=== PATIENT | female | born 1990 | race Caucasian/White ===

== ENCOUNTER → 2021-02-17 07:50 | Outpatient (BNVA) | payer OTHER, SELFPAY | PROVIDERS: PCP Physician Assistant; Visit Provider Surgery ==

== ENCOUNTER 2021-02-18 08:10 | Outpatient (REF) | payer OTHER, SELFPAY ==
[2021-02-18 12:01] LABS: MANUAL DIFF FLAG NO
[2021-02-18 12:12] LABS: Basophils Percent Auto 0.5 % (0-2); Eosinophils Absolute Auto 0.3 X10*3/uL (0.0-0.4); Eosinophils Percent Auto 3.5 % (0-4); Hematocrit 42.5 % (37-47); Hemoglobin 14.2 g/dl (12.0-16.0); Imm Gran Abs Auto 0.06 X10*3/uL (0.00-0.03); Imm Gran Pct Auto 0.8 % (0.0-0.4); Lymphocytes Absolute Auto 2.1 X10*3/uL (1.2-4.9); Lymphocytes Percent Auto 27.7 % (20-40); Mean Corpuscular HGB Conc 33.4 g/dl (31.0-35.0); Mean Corpuscular Hemoglobin 28.1 pg (27.0-33.0); Mean Platelet Volume 9.2 fL (9.4-12.3); Monocytes Absolute Auto 0.5 X10*3/uL (0.1-1.2); Neutrophils Absolute Auto 4.6 X10*3/uL (2.0-8.3); Neutrophils Percent Auto 61.5 % (45-73); Platelet Count 288 X10*3/uL (160-400); Red Blood Count 5.06 X10*6/uL (4.20-5.50); Red Cell Distribution Width 12.4 % (11.0-16.0); White Blood Count 7.5 X10*3/uL (4.8-10.8)
[2021-02-18 12:18] LABS: Estimated Average Glucose 105 mg/dL; Hemoglobin A1c % 5.3 %
[2021-02-18 12:46] LABS: Folate 8.1 ng/mL (> or = 4.0); Vitamin B12 360 pg/mL (200-900)
[2021-02-18 12:48] LABS: Ferritin 165 ng/mL (10-122); TSH reflex Free T4 4.35 uIU/mL (0.32-4.0); Vitamin D 25-OH Total 22.6 ng/mL (>30)
[2021-02-18 13:26] LABS: Alanine Aminotransferase 18 U/L (0-31); Albumin Level 4.4 g/dL (3.5-5.0); Alkaline Phosphatase 89 U/L (39-117); Anion Gap 14 (12-20); Aspartate Amino Transferase 17 U/L (5-31); Bilirubin Total 0.6 mg/dL (0.0-1.0); Blood Urea Nitrogen 13 mg/dL (9-16); C Reactive Protein 0.95 mg/dL (< or = 0.50); Calcium 9.5 mg/dL (8.4-10.2); Carbon Dioxide 26 mmol/L (22-29); Chloride 106 mmol/L (96-108); Cholesterol 215 mg/dL; Estimated Glomerular Filt Rate > 60; Glucose Random 83 mg/dL (60-115); HDL Cholesterol 40 mg/dL; Iron 83 mcg/dL (30-160); LDL Cholesterol Calculated 142 mg/dl; Percent Iron Saturation 23 % (15-50); Potassium 4.2 mmol/L (3.3-5.1); Sodium 142 mmol/L (135-145); Total Iron Binding Capacity 355 mcg/dL (228-428); Total Protein 7.4 g/dL (6.5-8.0); Triglycerides 167 mg/dL; Unsaturated Iron Binding 272 ug/dL
[2021-02-18 13:52] LABS: Free T4 (Free Thyroxine) 0.78 ng/dL (0.71-1.85)
[2021-02-19 17:16] LABS: Insulin Level Total 25.7 uIU/mL
[2021-02-20 13:06] LABS: Calcium (PTHI) 9.3 mg/dL (8.6-10.2); PTHI 96 pg/mL (14-64)
[2021-02-21 01:21] LABS: Zinc 75 mcg/dL (60-130)
[2021-02-22 11:41] LABS: Vitamin B1 8 nmol/L (8-30)
[2021-02-23 03:01] LABS: Vitamin A 46 mcg/dL (38-98)
== END 2021-02-18 08:11 | disposition home or self-care (01) ==
LOC: HO.LAB 08:10
PROVIDERS: Absent Provider Surgery; PCP Physician Assistant; Visit Provider Physician Assistant
DX: E66.01 Morbid (severe) obesity due to excess calories (principal); J45.909 Unspecified asthma, uncomplicated
CPT/HCPCS: 36415; 80053; 80061; 82306; 82607; 82728; 82746; 83036; 83525; 83540; 83970; 84425; 84439; 84443; 84590; 84630; 85025; 86140

== ENCOUNTER 2021-03-05 07:59 | Outpatient (REF) | payer OTHER, SELFPAY ==
[2021-03-06 13:57] LABS: H Pylori Breath Test NOT DETECTED (NOT DETECTED)
== END 2021-03-05 08:00 | disposition home or self-care (01) ==
LOC: HO.LNP 07:59
PROVIDERS: Surgery; PCP Physician Assistant; Visit Provider Physician Assistant
DX: Z11.0 Encounter for screening for intestinal infectious diseases (principal)
CPT/HCPCS: 83013; 99211

== ENCOUNTER 2021-03-06 08:28 | Outpatient (REF) | payer OTHER, SELFPAY ==
--- NOTE | ~2021-03-06 | US_ITS ---
EXAMINATION: US COMPLETE ABDOMEN WITH LIVER ELASTOGRAPHY CLINICAL INFORMATION: Obesity COMPARISON: None. TECHNIQUE: Real-time imaging of the abdominal viscera. Noninvasive ultrasound liver fibrosis assessment is performed using Venkat ElastPQ point quantification shear wave elastography (pSWE) with a C5-2 MHz transducer. Multiple elastography samples are obtained. FINDINGS: PANCREAS: The visualized pancreatic head and body are normal in appearance. The remainder of the pancreas is obscured from visualization by the overlying bowel gas. ABDOMINAL AORTA: The proximal and mid aortic segments are normal in caliber. The distal abdominal aorta is not well visualized due to bowel gas. INFERIOR VENA CAVA: Visualized portions are normal. LIVER: Liver echotexture is increased. The liver is enlarged. The liver is normal in contour. No focal lesion or intrahepatic biliary duct dilatation. The right lobe measures 19 cm in length. The left lobe measures 15 cm in length. Portal flow is normal/hepatopedal Shear wave liver elastography median stiffness is 1.65 m/s (reference: normal median stiffness is 1.3 m/s or less). IQR/median stiffness to assess sampling precision is 0.27 (reference: good quality data set is IQR/median stiffness of 0.15 or less). GALLBLADDER: There is a gallstone in the gallbladder measuring 2.1 x 1.2 x 1.8 cm. Gallbladder is otherwise normal. COMMON BILE DUCT: Normal in caliber measuring 0.5 cm in diameter. RIGHT KIDNEY: Normal. No hydronephrosis. No renal calculi or focal parenchymal lesions. The kidney measures 11.6 cm in maximum dimension. LEFT KIDNEY: Normal. No hydronephrosis. No renal calculi or focal parenchymal lesions. The kidney measures 11.0 cm in maximum dimension. SPLEEN: Normal. The spleen measures 11.5 cm in maximum dimension. FREE FLUID: None. US/US abdomen comp w elastography IMPRESSION: 1. Enlarged echogenic liver probably representing fatty infiltration. Gallstone. Limited visualization of the tail of the pancreas. 2. Liver Elastography: Limited due to sampling error. Liver stiffness is slightly elevated. REFERENCE: Society of Radiologists in Ultrasound Liver Stiffness Thresholds (2020): LIVER STIFFNESS THRESHOLDS: *Liver Stiffness equal or less than 1.3 m/s: High probability of being normal. *Liver Stiffness less than 1.7 m/s: In the absence of other known clinical signs, rules out compensated advanced chronic liver disease. *Liver Stiffness 1.7-2.1 m/s: Suggestive of compensated advanced chronic liver disease but need further test for confirmation. *Liver Stiffness over 2.1 m/s: Rules in compensated advanced chronic liver disease. *Liver Stiffness over 2.4 m/s: Suggestive of clinically significant portal hypertension. QUALITY OF DATA SET: *IQR/Median value equal or less than 0.15 implies a quality data set. *IQR/Median value over 0.15 implies a poor quality data set. SIGNIFICANT CHANGE FROM PRIOR EXAM: Significant change if liver stiffness measurement is 10% or greater from prior exam. OTHER CONSIDERATIONS: The stage of liver fibrosis may be overestimated in the setting of acute hepatitis, liver inflammation, elevated liver function tests, hepatic vascular congestion, obstructive cholestasis, non-fasting state, and infiltrative diseases such as amyloidosis and lymphoma. In some patients with NAFLD, the liver stiffness thresholds for compensated advanced chronic liver disease may be lower. In causes other than viral hepatitis and NAFLD, liver stiffness thresholds are not well established.
--- NOTE | ~2021-03-06 | XR_ITS ---
EXAMINATION: XR CHEST CLINICAL INFORMATION: Obesity COMPARISON: None TECHNIQUE: 2 views of the chest were obtained. FINDINGS: No significant abnormality is noted involving the heart, lungs, mediastinum, bony thorax or soft tissues. XR/XR chest 2V IMPRESSION: Unremarkable examination.
--- NOTE | ~2021-03-06 | FL_ITS ---
EXAMINATION: XR GI SERIES CLINICAL INFORMATION: Morbid obesity COMPARISON: None TECHNIQUE: Upper GI examination FINDINGS: There is normal elevation of the soft palate while saying candy. There is normal apposition of the vocal cords while saying E. Patient swallowed thin and thick barium without difficulty. No nasopharyngeal reflux or tracheal aspiration. No Zenker's diverticulum. The esophagus is unremarkable with normal motility and no evidence of gastroesophageal reflux. No stricture seen. The stomach demonstrates normal distensibility without abnormal mass or ulceration. There is no delay in gastric emptying. The duodenal bulb and sweep appear unremarkable. FLUOROSCOPY TIME: 1.5 minutes DOSE AREA PRODUCT: 29.200 Gy-cm2 (roldan-centimeter squared) FL/FL upper GI series IMPRESSION: Normal air contrast upper GI examination.
== END 2021-03-06 08:29 | disposition home or self-care (01) ==
LOC: HO.US 08:28
PROVIDERS: Visit Provider Surgery
DX: Z01.818 Encounter for other preprocedural examination (principal); E66.01 Morbid (severe) obesity due to excess calories; K21.9 Gastro-esophageal reflux disease without esophagitis; J45.909 Unspecified asthma, uncomplicated
CPT/HCPCS: 71046; 74240; 76705; 76981

== ENCOUNTER → 2021-03-24 07:10 | Outpatient (BNVA) | payer OTHER, SELFPAY | PROVIDERS: PCP Physician Assistant; Visit Provider Surgery ==

== ENCOUNTER → 2021-05-05 07:23 | Outpatient (BNVA) | payer OTHER, SELFPAY | PROVIDERS: PCP Physician Assistant; Visit Provider Surgery ==

== ENCOUNTER → 2021-05-15 08:06 | Outpatient (BNVA) | payer OTHER, SELFPAY | PROVIDERS: PCP Physician Assistant; Visit Provider Dietitian, Registered ==

== ENCOUNTER 2022-12-26 10:08 | Outpatient (REF) | payer OTHER, SELFPAY ==
[2022-12-26 11:45] LABS: MANUAL DIFF FLAG NO
[2022-12-26 11:55] LABS: Basophils Percent Auto 0.4 % (0-2); Eosinophils Absolute Auto 0.3 X10*3/uL (0.0-0.4); Eosinophils Percent Auto 3.9 % (0-4); Hematocrit 41.8 % (37.0-47.0); Hemoglobin 13.9 g/dl (12.0-16.0); Imm Gran Abs Auto 0.06 X10*3/uL (0.00-0.03); Imm Gran Pct Auto 0.9 % (0.0-0.4); Lymphocytes Percent Auto 29.2 % (20-40); Mean Corpuscular HGB Conc 33.3 g/dl (31.0-35.0); Mean Corpuscular Hemoglobin 27.4 pg (27.0-33.0); Mean Corpuscular Volume 82.3 fL (80.0-98.0); Monocytes Absolute Auto 0.5 X10*3/uL (0.1-1.2); Monocytes Percent Auto 7.2 % (2-11); Neutrophils Percent Auto 58.4 % (45-73); Platelet Count 272 X10*3/uL (160-400); Red Blood Count 5.08 X10*6/uL (4.20-5.50); Red Cell Distribution Width 12.6 % (11.0-16.0); White Blood Count 6.9 X10*3/uL (4.8-10.8)
[2022-12-26 12:17] LABS: Alanine Aminotransferase 21 U/L (0-31); Albumin Level 4.3 g/dL (3.5-5.0); Alkaline Phosphatase 84 U/L (39-117); Anion Gap 13 (12-20); Aspartate Amino Transferase 17 U/L (5-31); Bilirubin Total 0.6 mg/dL (0.0-1.0); Blood Urea Nitrogen 15 mg/dL (9-16); Calcium 9.3 mg/dL (8.4-10.2); Carbon Dioxide 25 mmol/L (22-29); Chloride 109 mmol/L (96-108); Cholesterol 222 mg/dL; Estimated Glomerular Filt Rate > 60; Glucose Fasting 81 mg/dL (60-99); HDL Cholesterol 41 mg/dL; LDL Cholesterol Calculated 164 mg/dl; Sodium 143 mmol/L (135-145); Triglycerides 89 mg/dL
[2022-12-26 12:41] LABS: Folate 8.8 ng/mL (> or = 4.0); Free T4 (Free Thyroxine) 0.72 ng/dL (0.71-1.85); Thyroid Stimulating Hormone 3.14 uIU/mL (0.32-4.0); Vitamin B12 357 pg/mL (200-900); Vitamin D 25-OH Total 14.7 ng/mL (>30)
[2022-12-28 13:23] LABS: Thyroid Peroxidase Antibodies 46 IU/mL (<9)
[2022-12-29 15:48] LABS: Calcium (PTHI) 9.7 mg/dL (8.6-10.2); PTHI 44 pg/mL (16-77)
== END 2022-12-26 10:09 | disposition home or self-care (01) ==
LOC: HO.HMGCLDS 10:08
PROVIDERS: PCP Internal Medicine; Visit Provider Internal Medicine
DX: E03.9 Hypothyroidism, unspecified (principal); R79.89 Other specified abnormal findings of blood chemistry; F41.1 Generalized anxiety disorder; F33.1 Major depressive disorder, recurrent, moderate; E66.01 Morbid (severe) obesity due to excess calories; E55.9 Vitamin D deficiency, unspecified; E53.8 Deficiency of other specified B group vitamins
CPT/HCPCS: 36415; 80053; 80061; 82306; 82607; 82746; 83970; 84439; 84443; 85025; 86376

== ENCOUNTER 2023-06-15 07:48 | Outpatient (AMB) | payer OTHER, SELFPAY ==
[2023-06-15 08:10] VITALS: BP 130/80; PULSE 68; O2SAT 98; BMI 53.0
--- NOTE | 2023-06-15 08:10 | A.OFFPC_ITS ---
Vital Signs 06/15/23 08:10 Height 5 ft 2 in Weight 290 lb BMI 53.0 BP 130/80 Blood Pressure Location Rt brachial Position Sitting Pulse 68 Pulse Source Pulse Oximeter Pulse Oximetry (%) 98 Oxygen Delivery Method Room Air Intake Visit Reasons: Annual Intake Note: Pt is here today for her PE Allergies sulfamethoxazole [From Bactrim] Allergy (Mild, Verified 06/15/23 08:17) rash cefaclor [From Ceclor] Allergy (Unknown, Verified 06/15/23 08:17) UNKNOWN Penicillins Allergy (Unknown, Verified 06/15/23 08:17) Unknown Medication List - Last Reconciled 06/15/23 by Meena Sanz MD buspirone 5 mg PO ONCE cholecalciferol (vitamin D3) 1,250 mcg PO QWEEK 3 months levonorgestrel (Mirena) intrauterine lisinopril 5 mg PO DAILY terbinafine HCl 1% (Antifungal (terbinafine)) 1 appl topical BID 4 weeks Ventolin HFA 90 mcg/actuation (albuterol sulfate) 2 puffs inhalation Q6H PRN NS Tobacco use date assessed: 06/15/23 Dental Screening Dental Screen Date: 06/15/23 Did you have a dental visit in the last 12 months?: Yes Did you have a dental problem in the last 6 months where you did not have access to dental care?: No Was dental information given to patient?: Patient has dentist HPI Annual HPI Details He here today for physical exam. She has hypertension currently on lisinopril 5 mg once a day . Currently on buspirone 5 mg once a day for mixed anxiety and depression. There are times however that she takes a 10 mg dose for worsening anxiety attacks. [facility], is overdue for her cervical cancer screening and for IUD surveillance. Patient wants to have IUD removed, Requesting to see a garnett machine operator helper, has thick deformed toenail in her right big toe as well as in the 5th toenail on the right foot. He has been applying a topical antifungal solution forms the last several months now which has not afforded any improvement. She made an appointment already see Dermatology, Dr. Mcclain for evaluation of a recurrent rash on both hands, where she gets a pruritic rash on the palms and fingers of both hands , worse after constant hand washing. She restarted playing soccer again, and has exercise-induced bronchospasm. Needs refill on her Ventolin inhaler. [facility] Medical History (Updated 06/15/23 @ 08:50 by Meena Sanz MD) Eczema of both hands Acquired deformity of toenail IUD surveillance Dyslipidemia Exercise induced bronchospasm Mixed anxiety and depressive disorder Essential hypertension Elevated TSH Vitamin D deficiency Vitamin B12 deficiency Morbid obesity Hypertension Surgical History History of Family History Mother Hypertension Brain aneurysm Skin cancer Thyroid disorder B-cell lymphoma Father Heart attack Bipolar 1 disorder Sister Mental health disorder Bipolar 1 disorder Sister No problems noted. Brother No problems noted. Brother No problems noted. Son No problems noted. Maternal Grandfather CAD (coronary artery disease) Acute IA, Onset Age: 60 Maternal Grandmother Alzheimer disease Social History Housing: House Alcohol intake: current Alcohol intake frequency: holidays/special occasions only Patient Tobacco Use Status: Never used Tobacco e-Cigarette/Vaping Use: Never Used Substance Use Type: Marijuana service: No Current occupational status: employed Cognitive needs: No Hearing needs: No Vision needs: No Questionnaire PHQ-9 Over the last 2 weeks, how often have you been bothered by any of the following problems? 1. Little interest or pleasure in doing things: not at all 2. Feeling down, depressed, or hopeless: several days 3. Trouble falling or staying asleep, or sleeping too much: several days 4. Feeling tired or having little energy: not at all 5. Poor appetite or overeating: not at all 6. Feeling bad about yourself - or that you are a failure or have let yourself or your family down: not at all 7. Trouble concentrating on things, such as reading the newspaper or watching television: not at all 8. Moving or speaking so slowly that other people could have noticed. Or the opposite - being so fidgety or restless that you have been moving around a lot more than usual: not at all 9. Thoughts that you would be better off or of hurting yourself in some way: not at all Total score: 2 Depression Screening Interpretation: Negative 43555 - PHQ-9 Billing: Yes Source: Developed by Drs. Quinton Mcmillan, Xenia Juárez, Roverto Vázquez and colleagues, with an educational lorena from [employer]. Thrive Questionnaire Date Thrive assessed: 12/25/22 AUDIT C Alcohol Use Questionnaire (AUDIT-C) 1. How often do you have a drink containing alcohol?: Monthly or less 2. How many drinks containing alcohol do you have on a typical day when you are drinking?: 1 or 2 3. How often do you have six or more drinks on one occasion?: Never Total Score: 1 CHELLE-7 AMB Questionnaire CHELLE-7 Date CHELLE - 7 assessed: 12/25/22 Feeling nervous, anxious, or on edge: 1 = Several days Not being able to stop or control worryin = Several days Worrying too much about different things: 2 = More than half the days Trouble relaxin = Several days Being so restless that it is hard to sit still: 0 = Not at all Becoming easily annoyed or irritable: 1 = Several days Feeling afraid as if something awful might happen: 0 = Not at all Total CHELLE-7 score (0-4 normal; 5-9 mild; 10-14 moderate; 15-21 severe): 6 Source: Developed by Drs. Quinton Mcmillan, Xenia Juárez, Roverto Vázquez and colleagues, with an educational lorena from [employer]. CHELLE-7 Assessment Billing CHELLE-7 Assessment Tool: CHELLE-7 Assessment 36776 Review of Systems Const Denies body aches, Denies fatigue, Denies headache(s) and Denies weakness Eyes Denies change in vision ENT Denies dizziness, Denies headache(s) and Denies nasal congestion Card Denies chest pain, Denies lightheadedness, Denies palpitations and Denies dys pnea Resp Denies chest congestion, Denies cough and Denies dyspnea GI Denies abdominal pain, Denies hematochezia, Reports constipation (Occasion), Rep orts GI cramping and Denies heartburn Denies hematuria, Denies urinary frequency, Denies dysuria and Denies urinary urgency Musc Details: Occasional pain, stiffness in both knees Skin/Breast Denies breast pain, Denies breast mass and Denies lesions Neuro Denies dizziness, Denies headache(s) and Denies weakness Psych Reports as per HPI Endo Denies fatigue, Denies polydipsia, Denies polyuria and Denies palpitations Alfredo/Lymph Reports no additional complaints Aller/Immun Denies seasonal rhinorrhea Physical exam (Primary Care) Vital Signs: Last Vital Signs Pulse 68 06/15/23 08:10 BP 130/80 06/15/23 08:10 Pulse Ox 98 06/15/23 08:10 Oxygen Delivery Method Room Air 06/15/23 08:10 BMI result Body Mass Index 53.0 BMI Assessment/Plan discussion: High (Has been seen at the weight loss clinic in [place] but decided against getting any bariatric surgery) BMI High, discussed plan: lifestyle, weight reduction, dietary and physical activity Tobacco/Smoking Status: Tobacco use Status Tobacco use date assessed 06/15/23 06/15/23 08:14 Patient Tobacco Use Status Never used Tobacco 06/15/23 08:14 e-Cigarette/Vaping Use Never Used 06/15/23 08:14 Depression Screening Interpretation: Negative Thrive Assessment: Date of Thrive Assessment Date Thrive assessed 12/25/22 06/15/23 08:14 Const General: comfortable, alert, awake and Physically active Nutritional Appearance: obese morbidly obese Orientation/consciousness: patient oriented x3 HENMT Head: Yes normocephalic Ears: hearing grossly normal bilaterally, external ears normal, TM's normal bilaterally and Abnormal EAC present cerumen impaction on the left General nose exam: Normal external nose present and No nasal discharge present Face and sinus: Yes face symmetric Mouth: Normal oral and palatal mucosa present, oropharynx normal and moist mucous membranes Eyes General: appearance normal, both eyes and all related structures Neck Neck: Yes full ROM, Yes no lymphadenopathy and Yes supple Thyroid: Thyroid normal Chest Chest palpation & inspection: normal inspection of the chest Breast/axilla palpation: normal palpation of the breasts Resp Effort & Inspection: normal respiratory effort and able to speak in complete sentences Auscultation: clear to auscultation bilaterally Cardio Palpation: normal PMI Rate: regular rate Rhythm: regular rhythm Heart sounds: S1 normal heart sound present and S2 normal heart sound present GI Inspection: Yes obesity Palpation (GI): Soft to palpation, nontender and no guarding Auscultation: normal bowel sounds General: Yes no CVA tenderness Back/Spine/Pelvis Back: no CVA tenderness and No back tenderness Skin Other: Erythematous patch on palms of both hands right more than the left Nails: yellow and thickened (Right big toenail and right 5th toenail) Neuro General: patient oriented x3, gait normal, moves all extremities, Normal light touch and pain sensation and no focal motor deficits Cranial nerves: Yes CN's II-XII intact bilaterally Gait exam (Neuro): Normal gait present Extrem General: Yes full ROM, Yes no joint enlargement, Yes no clubbing, cyanosis or edema, Yes no calf tenderness and Yes normal gait Psych Appearance: grossly normal and well kempt Mental Status: mental status grossly normal Speech and movement: Normal speech and movement present Affect: normal affect Attitude: cooperative Thought process: Normal thought process present Assessment and Plan Assessment & Plan (1) Annual visit for general adult medical examination with abnormal findings: Code(s): Z00.01 - Encounter for general adult medical examination with abnormal findings Plan: Will check appropriate labs. Recommended dental visit every 6 months and regular eye exams, at least every 2 years. Take adequate calcium in diet and start taking vitamin-D 3 at 2000 IU per cap once a day once finished taking the high-dose vitamin-D 3 supplements, in addition to weight-bearing exercises to help maintain good muscle tone and weight control. Instructed to do self-breast exam, and recommended to get yearly mammogram, starting at age 40. Advised to get her yearly flu shot and her COVID booster, up-to-date with her tetanus booster (2) Essential hypertension: Code(s): I10 - Essential (primary) hypertension Plan: Blood pressure at goal of less than 130/80. Continue with lisinopril 5 mg once a day. Reinforced importance of following a low sodium diet, getting regular exercise, and lowering stress levels. (3) Vitamin D deficiency: Code(s): E55.9 - Vitamin D deficiency, unspecified Plan: Will check vitamin-D level, prescription sent for vitamin-D 3 2000 units once a day to be taken when she is finished taking her high-dose prescription for vitamin-D 3 (4) Morbid obesity: Code(s): E66.01 - Morbid (severe) obesity due to excess calories Plan: Discussed need to increase activity and wt reduction. Referral to scale tank operator ordered. Recommended focusing on improving your health instead of dieting. : Eat Mediterranean diet, limit foods high in fat, sugar, and calories, eat slowly, pay attention to portion sizes, plan your meals ahead of time, start regular physical activity 150 minutes of moderate intensity exercise or 90 minutes/week of vigorous exercise and increase water intake. (5) Cervical cancer screening: Code(s): Z12.4 - Encounter for screening for malignant neoplasm of cervix Plan: Referred to [facility] for her cervical cancer screening, overdue (6) Acquired deformity of toenail: Comment: right big toenail and right 5th toenail Code(s): L60.8 - Other nail disorders Plan: Podiatry consult obtained with Dr. Segovia (7) Exercise induced bronchospasm: Code(s): J45.990 - Exercise induced bronchospasm Plan: Has started to play soccer, gets intermittent episodes of wheezing after moderate to severe exertion. Refill prescription sent for her Ventolin inhaler (8) Mixed anxiety and depressive disorder: Code(s): F41.8 - Other specified anxiety disorders Plan: Increased buspirone dose to 10 mg, taken either 5 mg twice a day or she can take a 10 mg dose in the morning, which she has been tried in the past, and has been helping her. Declines referral for counseling (9) IUD surveillance: Code(s): Z30.431 - Encounter for routine checking of intrauterine contraceptive device Plan: Referred to [facility] for IUD surveillance and for her cervical cancer screening[facility]. She is contemplating of getting IUD removed (10) Dyslipidemia: Code(s): E78.5 - Hyperlipidemia, unspecified Plan: Fasting lipid panel ordered , referred to scale tank operator for guidance with regards to lowering cholesterol and help losing weight (11) Impacted cerumen, left ear: Code(s): H61.22 - Impacted cerumen, left ear Plan: Advised to try [id number] Debrox drops or Cerumenex for earwax removal (12) Eczema of both hands: Code(s): L30.9 - Dermatitis, unspecified Plan: Patient already made an appointment to see Dr. Mcclain. Advised to try also was tries enhance using Eucerin eczema cream after each hand washing Orders: Orders Lipid Panel 06/15/23 E55.9 - Vitamin D deficiency, unspecified, E66.01 - Morbid (severe) obesity due to excess calories, E78.5 - Hyperlipidemia, unspecified, I10 - Essential (primary) hypertension Vitamin D 25-OH Total 06/15/23 E55.9 - Vitamin D deficiency, unspecified, E66.01 - Morbid (severe) obesity due to excess calories, E78.5 - Hyperlipidemia, unspecified, I10 - Essential (primary) hypertension Basic Metabolic Panel Fasting 06/15/23 E55.9 - Vitamin D deficiency, unspecified, E66.01 - Morbid (severe) obesity due to excess calories, E78.5 - Hyperlipidemia, unspecified, I10 - Essential (primary) hypertension Referrals [facility] Referral Z12.4 - Encounter for screening for malignant neoplasm of cervix, Z30.431 - Encounter for routine checking of intrauterine contraceptive device Podiatry Referral L60.8 - Other nail disorders Medications: New cholecalciferol (vitamin D3) 50 mcg PO DAILY 90 caps 1RF Changed From buspirone 5 mg PO ONCE F41.8 - Other specified anxiety disorders To buspirone 5 mg PO BID 60 tabs 3RF F41.8 - Other specified anxiety disorders Refilled Ventolin HFA 90 mcg/actuation (albuterol sulfate) Take 2 inhalation 15 units before exercise to treat exercise induced bronchospasm 2 puffs inhalation Q6H PRN 18 grams 5RF shortness of breath or wheezing NS lisinopril 5 mg PO DAILY 90 tabs 3RF I10 - Essential (primary) hypertension Coding Level of Care Code Est Pt Prev Care [id number]([id number]) Diagnoses Annual visit for general adult medical examination with abnormal findings Z00.01 Essential hypertension I10 Vitamin D deficiency E55.9 Morbid obesity E66.01 Cervical cancer screening Z12.4 Acquired deformity of toenail L60.8 Exercise induced bronchospasm J45.990 Mixed anxiety and depressive disorder F41.8 IUD surveillance Z30.431 Dyslipidemia E78.5 Impacted cerumen, left ear H61.22 Eczema of both hands L30.9 Additional Codes CHELLE-7 Assessment Billing - CHELLE-7 Assessment Tool: CHELLE-7 Assessment [id number] ([id number])
== END 2023-06-15 09:13 | disposition home or self-care (01) ==
PROVIDERS: Visit Provider Internal Medicine
DX: Z00.01 Encounter for general adult medical examination with abnormal findings (principal); I10 Essential (primary) hypertension; E55.9 Vitamin D deficiency, unspecified; E66.01 Morbid (severe) obesity due to excess calories; Z12.4 Encounter for screening for malignant neoplasm of cervix; L60.8 Other nail disorders; J45.990 Exercise induced bronchospasm; F41.8 Other specified anxiety disorders; Z30.431 Encounter for routine checking of intrauterine contraceptive device; E78.5 Hyperlipidemia, unspecified; H61.22 Impacted cerumen, left ear; L30.9 Dermatitis, unspecified
CPT/HCPCS: 99395

== ENCOUNTER 2023-08-24 08:06 | Outpatient (AMB) | payer OTHER, SELFPAY ==
[2023-08-24 08:20] VITALS: BP 116/70; BMI 52.8
--- NOTE | 2023-08-24 08:20 | MHC.OFFVIS ---
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 No complaints. The patient had a Mirena IUD inserted 5 years ago, in 11/2017, would like to discuss different options of Ca Last Pap/HPV was 5 years ago, no records available [facility] Medical History Eczema of both hands Acquired deformity of toenail IUD surveillance Dyslipidemia Exercise induced bronchospasm Mixed anxiety and depressive disorder Essential hypertension Elevated TSH Vitamin D deficiency Vitamin B12 deficiency Morbid obesity Hypertension Surgical History History of Family History Mother Hypertension Brain aneurysm Skin cancer Thyroid disorder B-cell lymphoma Father Heart attack Bipolar 1 disorder Sister Mental health disorder Bipolar 1 disorder Sister No problems noted. Brother No problems noted. Brother No problems noted. Son No problems noted. Maternal Grandfather CAD (coronary artery disease) Acute [place], Onset Age: 60 Maternal Grandmother Alzheimer disease Social History Housing: House Alcohol intake: current Alcohol intake frequency: holidays/special occasions only Patient Tobacco Use Status: Never used Tobacco e-Cigarette/Vaping Use: Never Used Substance Use Type: Marijuana service: No Current occupational status: employed Cognitive needs: No Hearing needs: No Vision needs: No Review of Systems Const All systems reviewed & are unremarkable except as noted in HPI and below Card Reports as per HPI Resp Reports as per HPI GI Reports as per HPI and Reports no additional complaints Reports as per HPI Physical Exam Vital Signs: BMI result Body Mass Index 52.8 Const General: cooperative, healthy appearing and comfortable Chest Chest palpation & inspection: normal inspection of the chest and normal palpation of entire chest wall Breast/axilla inspection: normal inspection of the breasts and normal inspection of the axillae Breast/axilla palpation: normal palpation of the breasts, normal palpation of the axillae and no axillary lymphadenopathy Resp Effort & Inspection: normal respiratory effort Auscultation: clear to auscultation bilaterally Percussion: percussion normal Cardio Palpation: normal PMI Rate: regular rate Rhythm: regular rhythm Heart sounds: no murmurs and no rubs Peripheral pulses: Peripheral pulses 2+ throughout GI Inspection: Yes normal to inspection Palpation (GI): Soft to palpation, nontender, no guarding, not rigid and No hepatosplenomegaly present Percussion: Yes normal to percussion Auscultation: normal bowel sounds Rectal Exam - Female: deferred General: Yes bladder normal to palpation External Female Exam: No lesion Speculum Exam - Vagina: normal appearance of the vagina, normal palpation, normal vaginal discharge and not erythematous Speculum Exam - Cervix: normal appearance of the cervix, normal palpation and Other cervical findings present (IUD string in place) Bimanual exam- vagina & uterus: normal bimanual exam, normal palpation, uterine size normal, bladder normal to palpation, consistency normal and normal palpation Bimanual Exam- Adnexa, other: normal adnexae, no masses and no tenderness Assessment & Plan Assessment & Plan (1) Well woman exam: Code(s): Z01.419 - Encounter for gynecological examination (general) (routine) without abnormal findings Plan: Cotesting done. Counseled the patient about the recommended dietary allowance of 1000 mg of Calcium & 600 IU of vitamin D. The patient was instructed to perform monthly self-breast exams and to schedule an annual exam in a year; All questions answered and the patient verbalized understanding. Instructed the patient to schedule annual exam in a year (2) IUD check up: Code(s): Z30.431 - Encounter for routine checking of intrauterine contraceptive device Plan: Discussed with the patient the finding on physical exam, IUD string in place, the patient was reassured. Instructions given to patient to call in case of temperature above 100.4, severe cramping/pelvic pain, abnormal discharge or abnormal uterine bleeding. Otherwise follow-up at her annual exam appointment. All questions answered, the patient verbalized understanding. (3) Family planning advice: Code(s): Z30.09 - Encounter for other general counseling and advice on contraception Plan: Discussed with the patient the different options of control including control pills/Nuvaring, DMPA, different types of IUD ?s ( cu vs progesterone) , sterilization. All the pros, cons, risks and benefits of each were discussed with the patient. The patient decided to stay with Mirena IUD, discussed the patient the duration for IUDs up to 8 years, the patient would like to think about different options and get back to us Coding Level of Care Code New Pt Prev Care 18-39yr([id number] Diagnoses Well woman exam Z01.419 IUD check up Z30.431 Family planning advice Z30.09
== END 2023-08-24 10:27 | disposition home or self-care (01) ==
PROVIDERS: PCP Internal Medicine; Visit Provider Obstetrics & Gynecology
DX: Z01.419 Encounter for gynecological examination (general) (routine) without abnormal findings (principal); Z30.431 Encounter for routine checking of intrauterine contraceptive device; Z30.09 Encounter for other general counseling and advice on contraception
CPT/HCPCS: 99385

== ENCOUNTER 2023-08-24 08:06 | Outpatient (REF) | payer OTHER, SELFPAY ==
[2023-08-25 05:40] LABS: CT PCR NOT DETECTED (Not Detect.); NG PCR NOT DETECTED (Not Detect.)
[2023-08-25 12:22] LABS: BV Int Neg Control Negative (Negative); BV Int Pos Control Positive (Positive)
[2023-08-27 02:04] LABS: HPV mRNA E6/E7 rflx Not Detected (Not Detected)
== END 2023-08-24 08:07 | disposition home or self-care (01) ==
LOC: HO.LNP 08:06
PROVIDERS: PCP Internal Medicine; Visit Provider Obstetrics & Gynecology
DX: Z01.419 Encounter for gynecological examination (general) (routine) without abnormal findings (principal)
CPT/HCPCS: 0353U; 87480; 87510; 87624; 87660; 88142; 99385

== ENCOUNTER 2024-07-03 08:01 | Outpatient (AMB) | payer OTHER, SELFPAY ==
[2024-07-03 08:03] VITALS: BP 102/80; PULSE 67; O2SAT 97; BMI 51.9
--- NOTE | 2024-07-03 08:03 | A.OFFPC_ITS ---
Vital Signs 07/03/24 08:03 Height 5 ft 2 in Weight 284 lb BMI 51.9 BP 102/80 Blood Pressure Location Rt brachial Position Sitting Pulse 67 Pulse Source Pulse Oximeter Pulse Oximetry (%) 97 Oxygen Delivery Method Room Air Intake Visit Reasons: Annual PE Intake Note: Pt is here today for her PE: Last papsmear 08/25/23 Allergies sulfamethoxazole [From Bactrim] Allergy (Mild, Verified 07/03/24 08:19) rash cefaclor [From Ceclor] Allergy (Unknown, Verified 07/03/24 08:19) UNKNOWN Penicillins Allergy (Unknown, Verified 07/03/24 08:19) Unknown fish Allergy (Intermediate, Uncoded 07/03/24 08:43) Hives Food allergy Allergy (Intermediate, Uncoded 07/03/24 08:43) Hives Medication List - Last Reconciled 07/03/24 by Meena Sanz MD buspirone 7.5 mg PO ONCE cholecalciferol (vitamin D3) 50 mcg PO DAILY levonorgestrel (Mirena) intrauterine lisinopril 5 mg PO DAILY Ventolin HFA 90 mcg/actuation (albuterol sulfate) 2 puffs inhalation Q6H PRN NS Tobacco use date assessed: 07/03/24 Dental Screening Dental Screen Date: 07/03/24 Did you have a dental visit in the last 12 months?: Yes Did you have a dental problem in the last 6 months where you did not have access to dental care?: No Was dental information given to patient?: Patient has dentist HPI Annual PE HPI Details 34-year-old lady with morbid obesity, ex ercise-induced bronchospasm, dyslipidemia, anxiety with depression, and hypertension, here today for a physical exam. She is up-to-date with her cervical cancer screening, with last Pap smear done 08/25/2023 which came back with negative findings. Takes Ventolin inhaler as needed for exercise-induced bronchospasm, needs a refill. Blood pressure stable controlled on lisinopril 5 mg taken once a day . Takes buspirone 7.5 mg once a day on ly which helps with controlling her anxiety and depression. Gets severe hives from eating fish, carrots, and peaches. Would like a referral to an clinical rehab specialist [facility] Medical History (Updated 07/03/24 @ 08:40 by Meena Sanz MD) Food allergic skin reaction Fish allergy Acquired deformity of toenail IUD surveillance Dyslipidemia Exercise induced bronchospasm Mixed anxiety and depressive disorder Essential hypertension Elevated TSH Vitamin D deficiency Vitamin B12 deficiency Morbid obesity Hypertension Surgical History History of Family History Mother Hypertension Brain aneurysm Skin cancer Thyroid disorder B-cell lymphoma Father Heart attack Bipolar 1 disorder Sister Mental health disorder Bipolar 1 disorder Sister No problems noted. Brother No problems noted. Brother No problems noted. Son No problems noted. Maternal Grandfather CAD (coronary artery disease) Acute [place], Onset Age: 60 Maternal Grandmother Alzheimer disease Social History Housing: House Alcohol intake: current Alcohol intake frequency: holidays/special occasions only Patient Tobacco Use Status: Never used Tobacco e-Cigarette/Vaping Use: Never Used Substance Use Type: Marijuana service: No Current occupational status: employed Cognitive needs: No Hearing needs: No Vision needs: No Female Reproductive History Menstrual control method: progestin IUCD Date of last pap smear: 08/25/23 Other: [place] [facility] [place] [facility] Dr. Torres Questionnaire PHQ-9 Over the last 2 weeks, how often have you been bothered by any of the following problems? 1. Little interest or pleasure in doing things: not at all 2. Feeling down, depressed, or hopeless: not at all 3. Trouble falling or staying asleep, or sleeping too much: several days 4. Feeling tired or having little energy: several days 5. Poor appetite or overeating: more than half the days 6. Feeling bad about yourself - or that you are a failure or have let yourself or your family down: not at all 7. Trouble concentrating on things, such as reading the newspaper or watching television: not at all 8. Moving or speaking so slowly that other people could have noticed. Or the opposite - being so fidgety or restless that you have been moving around a lot more than usual: more than half the days 9. Thoughts that you would be better off or of hurting yourself in some way: not at all Total score: 6 Depression Screening Interpretation: Negative Depression Screening Done: Yes 84611 - PHQ-9 Billing: Yes Source: Developed by Drs. Quinton Mcmillan, Xenai Juárez, Roverto Vázquez and colleagues, with an educational lorena from [employer]. Thrive Questionnaire Date Thrive assessed: 07/03/24 I am a: Patient What is your living situation today?: I have a steady place to live Within the past 12 months, did the food you bought not last and you didn't have the money to get more?: Never true Within the past 12 months, did you worry whether your food would run out before you got money to buy more?: Never true Do you have trouble paying for medicines?: No Do you have trouble getting transportation to medical appointments?: No Do you have trouble paying your heating and electricity bill?: No Do you have trouble taking care of your child, family member or friend?: No Do you have trouble with day-to-day activities such as bathing, preparing meals, shopping, managing finances, etc.?: No Are you currently unemployed and looking for a job?: No Are you interested in more education?: No Please select the resources that you would like help with: None Currently or been in a relationship where the following occur: No concerns r eported THRIVE Score: 0 AUDIT C Alcohol Use Questionnaire (AUDIT-C) 2. How many drinks containing alcohol do you have on a typical day when you are drinking?: 1 or 2 Total Score: 0 CHELLE-7 AMB Questionnaire CHELLE-7 Date CHELLE - 7 assessed: 07/03/24 Feeling nervous, anxious, or on edge: 1 = Several days Not being able to stop or control worryin = Not at all Worrying too much about different things: 1 = Several days Trouble relaxin = Not at all Being so restless that it is hard to sit still: 0 = Not at all Becoming easily annoyed or irritable: 1 = Several days Feeling afraid as if something awful might happen: 0 = Not at all Total CHELLE-7 score (0-4 normal; 5-9 mild; 10-14 moderate; 15-21 severe): 3 Source: Developed by Xenia Brown Franck, Roverto Vázquez and colleagues, with an educational lorena from [employer]. CHELLE-7 Assessment Billing CHELLE-7 Assessment Tool: CHELLE-7 Assessment 82046 Review of Systems Const Denies body aches, Denies headache(s) and Denies weakness Eyes Denies change in vision ENT Denies dizziness, Denies headache(s) and Denies nasal congestion Card Denies chest pain, Denies lightheadedness, Denies palpitations and Denies dyspnea Resp Details: Gets wheezing, gets short of breath on moderate exertion, uses Ventolin inhaler prior to exercise which helps Denies chest congestion, Denies cough and Denies dyspnea GI Denies abdominal pain, Denies hematochezia and Denies heartburn Denies hematuria, Denies urinary frequency, Denies dysuria and Denies urinary urgency Musc Details: Occasional pain, stiffness in both knees Skin/Breast Denies breast pain, Denies breast mass and Denies lesions Neuro Denies dizziness, Denies headache(s) and Denies weakness Psych Reports as per HPI Endo Denies polydipsia, Denies polyuria and Denies palpitations Alfredo/Lymph Reports no additional complaints Aller/Immun Reports as per HPI and Denies seasonal rhinorrhea Physical exam (Primary Care) Vital Signs: Last Vital Signs Pulse 67 07/03/24 08:03 BP 102/80 07/03/24 08:03 Pulse Ox 97 07/03/24 08:03 Oxygen Delivery Method Room Air 07/03/24 08:03 BMI result Body Mass Index 51.9 BMI Assessment/Plan discussion: High (Has been seen at the weight loss clinic in [place] but decided against getting any bariatric surgery) BMI High, discussed plan: lifestyle, weight reduction, dietary and physical activity Tobacco/Smoking Status: Tobacco use Status Tobacco use date assessed 07/03/24 07/03/24 08:09 Patient Tobacco Use Status Never used Tobacco 07/03/24 08:04 e-Cigarette/Vaping Use Never Used 07/03/24 08:04 Depression Screening Interpretation: Negative Thrive Assessment: Date of Thrive Assessment Date Thrive assessed 07/03/24 07/03/24 08:09 Currently or been in a relationship where the following occur: No concerns reported Const General: comfortable, alert, awake and Physically active Nutritional Appearance: obese morbidly obese Orientation/consciousness: patient oriented x3 HENMT Head: Yes normocephalic Ears: hearing grossly normal bilaterally, external ears normal, TM's normal bilaterally and Abnormal EAC present cerumen impaction on the left General nose exam: Normal external nose present and No nasal discharge present Face and sinus: Yes face symmetric Mouth: Normal oral and palatal mucosa present, oropharynx normal and moist mucous membranes Eyes General: appearance normal, both eyes and all related structures Neck Neck: Yes full ROM, Yes no lymphadenopathy and Yes supple Thyroid: Thyroid normal Chest Chest palpation & inspection: normal inspection of the chest Breast/axilla palpation: normal palpation of the breasts Resp Effort & Inspection: normal respiratory effort and able to speak in complete sentences Auscultation: clear to auscultation bilaterally Cardio Palpation: normal PMI Rate: regular rate Rhythm: regular rhythm Heart sounds: S1 normal heart sound present and S2 normal heart sound present GI Inspection: Yes obesity Palpation (GI): Soft to palpation, nontender and no guarding Auscultation: normal bowel sounds General: Yes no CVA tenderness Back/Spine/Pelvis Back: no CVA tenderness and No back tenderness Skin General skin exam: no rashes or lesions noted Neuro General: patient oriented x3, gait normal, moves all extremities, Normal light touch and pain sensation and no focal motor deficits Cranial nerves: Yes CN's II-XII intact bilaterally Gait exam (Neuro): Normal gait present Extrem General: Yes full ROM, Yes no joint enlargement, Yes no clubbing, cyanosis or edema, Yes no calf tenderness and Yes normal gait Psych Appearance: grossly normal and well kempt Mental Status: mental status grossly normal Speech and movement: Normal speech and movement present Affect: normal affect Attitude: cooperative Thought process: Normal thought process present Office Procedures Flu Questionnaire Does the patient have a severe egg allergy?: No Does the patient have severe life threatening allergies?: No Does the patient have a fever or illness today?: No Has the patient ever had Guillain-Noel Syndrome?: No Has the patient ever had any past reaction to a flu shot?: No Immunizations Fluarix Triv [id number] (PF) 45 mcg (15 mcg x 3)/0.5 mL IM syringe Performing Provider: Meena Sanz MD [place] [facility] [place] [place] [facility] Administered by: Yulia Lee CMA on 07/03/24 08:38 Dose Route Admin Location Dispensed Lot Number Expiration Date NDC Commodity Lead 0.5 mL IM Right Deltoid 0.5 mL [id number] 03/12/25 [id number] [employer] VIS Given Date VIS Provided VIS Publication Date 07/03/24 Single Vaccine 21 Eligibility Eligibility Date Funding Source Not VFC Eligible 07/03/24 Private Coding Level of Care Code Est Pt Prev Care 18-39y(17450) Diagnoses Morbid obesity E66.01 Vitamin D deficiency E55.9 Essential hypertension I10 Mixed anxiety and depressive disorder F41.8 Exercise induced bronchospasm J45.990 Dyslipidemia E78.5 Encounter for counseling regarding advance directives Z71.89 Annual visit for general adult medical examination with abnormal findings Z00.01 Fish allergy Z91.013 Food allergic skin reaction L27.2 Additional Codes CHELLE-7 Assessment Billing - CHELLE-7 Assessment Tool: CHELLE-7 Assessment 11437 ([id number]) Assessment & Plan Assessment & Plan (1) Morbid obesity: Code(s): E66.01 - Morbid (severe) obesity due to excess calories Category: Medical Plan: Your BMI is above the ideal range. Discussed need to increase activity and weight reduction. Recommended focusing on improving health instead of dieting. Mediterranean diet is a healthy diet that helps, limit food high in fat, sugar, and calories. Eat slowly, pay attention to portion sizes, plan your meals ahead of time, start regular physical activity, at least 150 minutes of moderate intensity exercise, or 90 minutes per week of vigorous exercise. Keeping a food diary, tracking what you eat and your physical activity can help assess what improvements you can make. Has been seen at the weight loss clinic in [place] but decided against getting any bariatric surgery (2) Vitamin D deficiency: Code(s): E55.9 - Vitamin D deficiency, unspecified Category: Medical Plan: Will check vitamin-D level, in the meantime can start taking [id number] vitamin D3 at 2000 units daily (3) Essential hypertension: Code(s): I10 - Essential (primary) hypertension Category: Medical Plan: Blood pressure at goal of less than 130/80. Continue lisinopril 5 mg daily Reinforced importance of following a low sodium diet, getting regular exercise, and lowering stress levels. (4) Mixed anxiety and depressive disorder: Code(s): F41.8 - Other specified anxiety disorders Category: Medical Plan: Stable and controlled on buspirone 7.5 mg taken once a day in a.m. (5) Exercise induced bronchospasm: Code(s): J45.990 - Exercise induced bronchospasm Category: Medical Plan: Refill sent for her Ventolin inhaler which she uses at least 15 minutes before exercise (6) Dyslipidemia: Code(s): E78.5 - Hyperlipidemia, unspecified Category: Medical Plan: Fasting lipid panel ordered today. Reinforced importance of following a low-cholesterol diet and getting regular exercise at least 30 minutes of cardio exercise daily (7) Encounter for counseling regarding advance directives: Code(s): Z71.89 - Other specified counseling Plan: Initiated the conversation about Advanced Directives. Advanced Directives help patients prepare for current and future decisions about their medical treatment and place of care. Discussed with patient that it is a process where a patients current condition and prognosis are reviewed, their wishes for information regarding their illness are elicited, and likely medical dilemmas are presented and options discussed. Healthcare proxy form completed today. The form can be amended as needed, reviewed yearly and make changes as needed (8) Annual visit for general adult medical examination with abnormal findings: Code(s): Z00.01 - Encounter for general adult medical examination with abnormal findings Plan: Will check appropriate labs. Continue red dental visit every 6 months and regular eye exams, at least every 2 years. Take adequate calcium in diet and vitamin-D 3 at 2000 IU per cap once a day, in addition to weight-bearing exercises to help maintain good muscle tone and weight control. Instructed to do self-breast exam, and recommended to get yearly mammogram, starting at age 40. Flu vaccine given today, recommended to get her COVID booster sees Dr. Torres for her routine Pap and pelvic exam (9) Fish allergy: Code(s): Z91.013 - Allergy to seafood Category: Medical Plan: Allergy consult ordered (10) Food allergic skin reaction: Code(s): L27.2 - Dermatitis due to ingested food Category: Medical Plan: Allergy consult ordered Orders: Orders Influenza [id number] Immunization Today Z23 - Encounter for immunization Basic Metabolic Panel Fasting Today E55.9 - Vitamin D deficiency, unspecified, E66.01 - Morbid (severe) obesity due to excess calories, E78.5 - Hyperlipidemia, unspecified, I10 - Essential (primary) hypertension, Z00.01 - Encounter for general adult medical examination with abnormal findings Alanine Aminotransferase Today E55.9 - Vitamin D deficiency, unspecified, E66.01 - Morbid (severe) obesity due to excess calories, E78.5 - Hyperlipidemia, unspecified, I10 - Essential (primary) hypertension, Z00.01 - Encounter for general adult medical examination with abnormal findings, Z71.89 - Other specified counseling Aspartate Amino Transferase Today E55.9 - Vitamin D deficiency, unspecified, E66.01 - Morbid (severe) obesity due to excess calories, E78.5 - Hyperlipidemia, unspecified, I10 - Essential (primary) hypertension, Z00.01 - Encounter for general adult medical examination with abnormal findings, Z71.89 - Other specified counseling Vitamin D 25-OH Total Today E55.9 - Vitamin D deficiency, unspecified, E66.01 - Morbid (severe) obesity due to excess calories, E78.5 - Hyperlipidemia, unspecified, I10 - Essential (primary) hypertension, Z00.01 - Encounter for general adult medical examination with abnormal findings, Z71.89 - Other specified counseling Lipid Panel Today E55.9 - Vitamin D deficiency, unspecified, E66.01 - Morbid (severe) obesity due to excess calories, E78.5 - Hyperlipidemia, unspecified, I10 - Essential (primary) hypertension, Z00.01 - Encounter for general adult medical examination with abnormal findings, Z71.89 - Other specified counseling Referrals Allergy & Immunology Referral L27.2 - Dermatitis due to ingested food, Z91.013 - Allergy to seafood Medications: Refilled Ventolin HFA 90 mcg/actuation (albuterol sulfate) Take 2 inhalation 15 units before exercise to treat exercise induced bronchospasm 2 puffs inhalation Q6H PRN 18 grams 5RF shortness of breath or wheezing NS
== END 2024-07-03 09:25 | disposition home or self-care (01) ==
PROVIDERS: PCP Internal Medicine; Visit Provider Internal Medicine
DX: Z00.00 Encounter for general adult medical examination without abnormal findings (principal); E66.813 Obesity, class 3; E55.9 Vitamin D deficiency, unspecified; Z68.43 Body mass index [BMI] 50.0-59.9, adult; I10 Essential (primary) hypertension; F41.8 Other specified anxiety disorders; J45.990 Exercise induced bronchospasm; E78.5 Hyperlipidemia, unspecified; Z71.89 Other specified counseling; Z91.013 Allergy to seafood; L27.2 Dermatitis due to ingested food

== ENCOUNTER → 2024-07-03 08:01 | Outpatient (BNVA) | payer OTHER, SELFPAY | PROVIDERS: PCP Internal Medicine; Visit Provider Internal Medicine ==

== ENCOUNTER 2024-07-03 08:41 | Outpatient (REF) | payer OTHER, SELFPAY ==
[2024-07-03 10:43] LABS: Anion Gap 11 (12-20); Blood Urea Nitrogen 15 mg/dL (9-16); Calcium 9.4 mg/dL (8.4-10.2); Carbon Dioxide 25 mmol/L (22-29); Chloride 109 mmol/L (96-108); Cholesterol 205 mg/dL (<200); Estimated Glomerular Filt Rate > 60; Glucose Fasting 93 mg/dL (60-99); HDL Cholesterol 42 mg/dL (>40); LDL Cholesterol Calculated 146 mg/dL (<100); Potassium 4.3 mmol/L (3.3-5.1); Sodium 141 mmol/L (135-145); Triglycerides 85 mg/dL (<150)
[2024-07-03 11:08] LABS: Vitamin D 25-OH Total 41.2 ng/mL (>30)
[2024-07-03 13:01] LABS: Alanine Aminotransferase 20 U/L (0-31); Aspartate Amino Transferase 21 U/L (5-31)
== END 2024-07-03 08:42 | disposition home or self-care (01) ==
LOC: HO.HMGCLDS 08:41
PROVIDERS: PCP Internal Medicine; Visit Provider Internal Medicine
DX: Z00.01 Encounter for general adult medical examination with abnormal findings (principal); I10 Essential (primary) hypertension; E55.9 Vitamin D deficiency, unspecified; E66.01 Morbid (severe) obesity due to excess calories; E78.5 Hyperlipidemia, unspecified; Z71.89 Other specified counseling
CPT/HCPCS: 36415; 80048; 80061; 82306; 84450; 84460; 90471; 90656; 96127; 99395

== ENCOUNTER → 2024-09-28 10:28 | Outpatient (BNVA) | payer OTHER, SELFPAY | PROVIDERS: PCP Internal Medicine; Visit Provider Advanced Practice Midwife ==

== ENCOUNTER 2024-11-30 09:08 | Outpatient (REF) | payer OTHER, SELFPAY ==
[2024-12-01 04:57] LABS: CT PCR NOT DETECTED (Not Detect.); NG PCR NOT DETECTED (Not Detect.)
[2024-12-01 10:53] LABS: Bacterial Vaginosis PCR NEGATIVE (Negative); Candida Group PCR NOT DETECTED (Not Detect); Candida glab krusei PCR NOT DETECTED (Not Detect); Trichomonas vaginalis PCR NOT DETECTED (Not Detect)
== END 2024-11-30 09:09 | disposition home or self-care (01) ==
LOC: HO.LAB 09:08
PROVIDERS: PCP Internal Medicine; Visit Provider Advanced Practice Midwife
DX: Z01.419 Encounter for gynecological examination (general) (routine) without abnormal findings (principal); N89.8 Other specified noninflammatory disorders of vagina; E66.01 Morbid (severe) obesity due to excess calories; I10 Essential (primary) hypertension; Z20.2 Contact with and (suspected) exposure to infections with a predominantly sexual mode of transmission; Z11.3 Encounter for screening for infections with a predominantly sexual mode of transmission; Z68.43 Body mass index [BMI] 50.0-59.9, adult; Z97.5 Presence of (intrauterine) contraceptive device
CPT/HCPCS: 81515; 87491; 87591; 99385; 99459

== ENCOUNTER 2024-11-30 09:08 | Outpatient (AMB) | payer OTHER, SELFPAY ==
[2024-11-30 09:15] VITALS: BP 118/70; BMI 52.1
--- NOTE | 2024-11-30 09:15 | MHC.OFFVIS ---
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 Health Promotion Manager Required: No Health Promotion Manager Services: Health Promotion Manager Present Information Interpreted: clinical only Biodiesel Product Manager: Biodiesel Product Manager Present Allergies sulfamethoxazole [From Bactrim] Allergy (Mild, Verified 11/30/24 09:16) rash cefaclor [From Ceclor] Allergy (Unknown, Verified 11/30/24 09:16) UNKNOWN Penicillins Allergy (Unknown, Verified 11/30/24 09:16) Unknown fish Allergy (Intermediate, Uncoded 11/30/24 09:16) Hives Food allergy Allergy (Intermediate, Uncoded 11/30/24 09:16) Hives Medication List - Last Reconciled 11/30/24 by Yamila Mckoy CNM buspirone 5 mg PO BID cholecalciferol (vitamin D3) 50 mcg PO DAILY levonorgestrel (Mirena) intrauterine lisinopril 5 mg PO DAILY Ventolin HFA 90 mcg/actuation (albuterol sulfate) 2 puffs inhalation Q6H PRN NS Is last menstrual period known: No (IUD) HPI HPI 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 She wants to talk about taking out her Mi[facility] IUD [facility] she is not currently sexually active but whenever nose with the future will bring. She was sexually active when she has a discussion about with Brian last year, so discussion lead to keeping IUD in she was thinking about having it removed to just not have another medication in her body period and also since she does not need it for control at the. She says her periods were regular before she had it would in. She has a 13-year-old son some special needs delivered by at [facility]. [facility] Medical History Food allergic skin reaction Fish allergy Acquired deformity of toenail IUD surveillance Dyslipidemia Exercise induced bronchospasm Mixed anxiety and depressive disorder Essential hypertension Elevated TSH Vitamin D deficiency Vitamin B12 deficiency Morbid obesity Hypertension Surgical History History of Family History Mother Hypertension Brain aneurysm Skin cancer Thyroid disorder B-cell lymphoma Father Heart attack Bipolar 1 disorder Sister Mental health disorder Bipolar 1 disorder Sister No problems noted. Brother No problems noted. Brother No problems noted. Son No problems noted. Maternal Grandfather CAD (coronary artery disease) Acute [place], Onset Age: 60 Maternal Grandmother Alzheimer disease Social History Housing: House Alcohol intake: current Alcohol intake frequency: holidays/special occasions only Patient Tobacco Use Status: Never used Tobacco e-Cigarette/Vaping Use: Never Used Substance Use Type: Marijuana service: No Current occupational status: employed Cognitive needs: No Hearing needs: No Vision needs: No Female Reproductive History Menstrual Age of Menarche: 10 control method: progestin IUCD Total pregnancies: 1 Date of last pap smear: 08/25/23 (neg.hpv-) Physical Exam Vital Signs: Last Vital Signs BP 118/70 11/30/24 09:15 BMI result Body Mass Index 52.1 Const General: healthy appearing, comfortable, no acute distress, well developed and alert Orientation/consciousness: patient oriented x3 Limitations: no limitations HEENT Head: Yes normocephalic Neck Neck: Yes normal visual inspection Chest Chest palpation & inspection: normal inspection of the chest Breast/axilla inspection: normal inspection of the breasts and normal inspection of the axillae Breast/axilla palpation: normal palpation of the breasts and normal palpation of the axillae Resp Effort & Inspection: normal respiratory effort GI Inspection: Yes normal to inspection and No Abdominal wall edema Palpation (GI): Soft to palpation and nontender Other: External exam within normal limits vagina pink and moist healthy appearing mucus unable to visualize cervix secondary to adipose and habitus however cervix palpable nulliparous IUD string palpable os extending about 1 cm. Cervix non tender mobile uterus unable to palpate but nontender and mobile adnexa nontender very good muscle tone. External Female Exam: normal external appearance and normal appearance of the urethra Speculum Exam - Vagina: normal appearance of the vagina, normal palpation and normal vaginal discharge Bimanual exam- vagina & uterus: normal bimanual exam, normal palpation, uterine mobility normal, non-tender and no cervical motion tenderness Bimanual Exam- Adnexa, other: normal and No adnexal tenderness Neuro General: patient oriented x3 Assessment & Plan Assessment & Plan (1) Morbid obesity: Code(s): E66.01 - Morbid (severe) obesity due to excess calories Category: Medical (2) Presence of 52 mg levonorgestrel-releasing intrauterine device (IUD): Comment: Discussed that it can be used for 5-8 years. [facility] Patient contemplating mobile versus placement discussed in great detail, see note. Also unable to visualize cervix secondary to habitus, able to palpate string 11/30/24. Code(s): Z97.5 - Presence of (intrauterine) contraceptive device Category: Social Hx (3) Cervical cancer screening: Code(s): Z12.4 - Encounter for screening for malignant neoplasm of cervix Category: Medical (4) Encounter for screening examination for sexually transmitted disease: Code(s): Z11.3 - Encounter for screening for infections with a predominantly sexual mode of transmission Category: Medical (5) Women's annual routine gynecological examination: Code(s): Z01.419 - Encounter for gynecological examination (general) (routine) without abnormal findings Category: Medical (6) control counseling: Code(s): Z30.09 - Encounter for other general counseling and advice on contraception Category: Medical (7) Essential hypertension: Code(s): I10 - Essential (primary) hypertension Category: Medical Plan -----Discussed in this visit the following: healthy balanced diet, regular and consistent exercise, getting recommended health screens, doing the best she can for her particular health concerns, kegel exercises, pap smear screening and followup recommendations, mammography screening and SBE, normal changes in cycles in her life stage--- Discussed the Mirena in great detail including the the Mirena has some protective effects against buildup of the lining of the uterus should somebody have cycles that are amenorrheic there for can contribute to a buildup of the lining. Discussed that this sometimes happen in the setting mobile weight and elevated is contributing to ovulatory cycles. Discussed that sometimes that can result in lengthy periods of amenorrhea followed by hemorrhaging requiring emergency C when surgical intervention and transfusions. In light of all this she decided to leave it in for least 1 more year it would be due for replacement or removal next year. She is not currently sexually but not possible future. She is also very clear that she had want a method contraception that is reliable. Also discussed the initial recommendations to use the Mirena IUD for contraception for up to 5 years. Some recent studies are indicating that it can be used for longer and there are current recommendations saying it can be left for longer period of time when used for contraception, up to 8 years and it can be used for 5 years when it is being used to help control abnormal bleeding. However, many women, whose periods went away for the 1st few years of having the Mirena, have reported that around 4-1/2-5 years into its use, they have noticed return of full menses, and return of ovulatory signs and symptoms midcycle. This varies from women to woman. In addition women who have had it to help control bleeding, have had amenorrhea for very many years and sometimes have opted to leave it in longer if they are still not bleeding, when they are not concerned about contraception. I recommend the she pay attention to how the effects are acting on her own body, and cycles, and always take care to be aware of this. And if she is using it for contraception, and the consequences of conceiving would be great for her, she would be gonsalves to pay attention to this, and not depend on it, if she has a return to fertility. Also in light of the fact that I was not able to visualize her cervix I would know that I would have difficulty replacing her IUD she might be better served/ addressed with Dr. Torres whom she saw last year, Also it guessed weight concerns. She has started on metformin help with weight loss and she stopped it for a while and gained some back and she is planning restarting it again soon. I recommend also she check in her primary care provider and says reviewed primary as she already has hypertension, dyslipidemia; comorbidities sometimes can increas eaccess to other medications for weight loss. She said she had spoken about a nutrition appointment with her primary as well but she is not sure what happened with that. And if she desires replacement, she should return for replacement at the appropriate time. This note is constructed using voice recognition software. While every effort has been made to ensure accuracy, physicist nuclear errors may have been included. RTC 1 year or p.r.n. Orders: Orders CT NG by PCR Today N89.8 - Other specified noninflammatory disorders of vagina, Z20.2 - Contact with and (suspected) exposure to infections with a predominantly sexual mode of transmission Bacterial Vaginosis Panel Today N89.8 - Other specified noninflammatory disorders of vagina Coding Level of Care Code New Pt Prev Care 18-39yr([id number] Diagnoses Morbid obesity E66.01 Presence of 52 mg levonorgestrel-releasing intrauterine device (IUD) Z97.5 Cervical cancer screening Z12.4 Encounter for screening examination for sexually transmitted disease Z11.3 Women's annual routine gynecological examination Z01.419 control counseling Z30.09 Essential hypertension I10
== END 2024-11-30 10:28 | disposition home or self-care (01) ==
LOC: HO.HWSM 09:08
PROVIDERS: PCP Internal Medicine; Visit Provider Advanced Practice Midwife
DX: Z01.419 Encounter for gynecological examination (general) (routine) without abnormal findings (principal); Z30.09 Encounter for other general counseling and advice on contraception; E66.01 Morbid (severe) obesity due to excess calories
CPT/HCPCS: 99385; 99459

== ENCOUNTER 2025-05-21 14:58 | Outpatient (AMB) | payer OTHER, SELFPAY ==
--- NOTE | 2025-05-21 15:00 | MHC.OFFVIS ---
Intake Visit Reasons: New Pt- nail disorder Intake Note: Humaira is a 35 year old female who presents today as a new patient for an evaluation of right nail disorder. She mentions this has been going on for over a year. Patient has tried OTC fungal cream and found that this treatment was successful for the 2nd,3rd and 4th toe. However her right great toe is green and she thinks is infected. Allergies sulfamethoxazole (From Bactrim) Allergy (Mild, Verified 05/21/25 15:18) rash cefaclor (From Ceclor) Allergy (Unknown, Verified 05/21/25 15:18) UNKNOWN Penicillins Allergy (Unknown, Verified 05/21/25 15:18) Unknown fish Allergy (Intermediate, Uncoded 11/30/24 09:16) Hives Food allergy Allergy (Intermediate, Uncoded 11/30/24 09:16) Hives Medication List - Last Reconciled 05/21/25 by Yash Cano DPM buspirone 5 mg PO BID cholecalciferol (vitamin D3) 50 mcg PO DAILY levonorgestrel (Mirena) intrauterine lisinopril 5 mg PO DAILY terbinafine HCl 250 mg PO DAILY Ventolin HFA 90 mcg/actuation (albuterol sulfate) 2 puffs inhalation Q6H PRN NS HPI HPI New Pt- nail disorder: Details: 35-year-old female no pertinent past medical history presents to the clinic for initial evaluation of discolored right great toenail. She states that she has been doing with ingrown toenails for the majority of her adult life and she goes to a nail salon that treats her nails. However she has noticed recurrent discoloration and fungal nail infections which she has been treating with topical thus-wsj-juvscpi medications, which have had little efficacy. She uses antifungal sprays for her shoes and attempts to remove fungal contaminant at home. [facility] Medical History Food allergic skin reaction Fish allergy Acquired deformity of toenail IUD surveillance Dyslipidemia Exercise induced bronchospasm Mixed anxiety and depressive disorder Essential hypertension Elevated TSH Vitamin D deficiency Vitamin B12 deficiency Morbid obesity Hypertension Surgical History History of Family History Mother Hypertension Brain aneurysm Skin cancer Thyroid disorder B-cell lymphoma Father Heart attack Bipolar 1 disorder Sister Mental health disorder Bipolar 1 disorder Sister No problems noted. Brother No problems noted. Brother No problems noted. Son No problems noted. Maternal Grandfather CAD (coronary artery disease) Acute [place], Onset Age: 60 Maternal Grandmother Alzheimer disease Social History Housing: House Alcohol intake: current Alcohol intake frequency: holidays/special occasions only Patient Tobacco Use Status: Never used Tobacco e-Cigarette/Vaping Use: Never Used Substance Use Type: Marijuana service: No Current occupational status: employed Cognitive needs: No Hearing needs: No Vision needs: No Female Reproductive History Menstrual Age of Menarche: 10 Review of Systems Const All systems reviewed & are unremarkable except as noted in HPI and below Office Procedures AMB Debridement/Avulsion Podia Nail Biopsy: 89547 Nail unit biopsy (Right great toenail) Procedure code (CPT) selection complete Assessment & Plan Assessment & Plan (1) Onychomycosis: Comment: Right great toe nail Code(s): B35.1 - Tinea unguium Category: Medical Plan: Discussed differential diagnosis of her right great toenail this occlusion which includes fungal infection versus traumatic nail plate. Performed right great toenail biopsy which was sent for pathology and fungal culture. Rx terbinafine 250 mg daily times 30 days. Planned for a three-month course. Discussed risks of terbinafine medication which includes damage to her liver enzymes. Explained that she cannot drink alcohol during the course of this treatment due to concomitant risk. Rx LFTs, to be completed 1 week prior to follow-up in 1 month. Discussed that she would not see immediate results of her nail discoloration, and that it will likely take 6+ months to see clinical improvement of her nail. Patient was recommended partial nail avulsion with chemical matrixectomy to her left hallux medial and lateral nail borders, and possibly her right hallux lateral nail border in the future to prevent recurrence of her paronychia. Patient states that she is interested in a partial nail avulsion in the next visit, for her left big toe. Discussed postprocedure protocol which will include limited activity after her partial nail avulsion. Follow-up in 1 month. (2) Ingrown toenail of both feet: Code(s): L60.0 - Ingrowing nail Category: Medical Plan: We will plan for partial nail avulsion with phenol chemical matrixectomy next visit for the left big toe. Orders: Orders Surgical Today B35.1 - Tinea unguium AMB Debridement/Avulsion Podiatry Today B35.1 - Tinea unguium Liver Panel Today B35.1 - Tinea unguium, Z79.899 - Other intermodal customer service (current) drug therapy Routine Culture w Gram Stain Today B35.1 - Tinea unguium Medications: New terbinafine HCl Take once daily. 250 mg PO DAILY 30 tabs 2RF Fungal toenail B35.1 - Tinea unguium Coding Level of Care Code New Pt Level 4 (96773) Diagnoses Onychomycosis B35.1 Ingrown toenail of both feet L60.0 CPT Codes Skin Debridement - CPT: 48797 Nail unit biopsy ([id number]) Time Spent (min) 32
== END 2025-05-21 15:49 | disposition home or self-care (01) ==
LOC: HO.HPODS 14:59
PROVIDERS: PCP Internal Medicine; Visit Provider Student in an Organized Health Care Education/Training Program
DX: B35.1 Tinea unguium (principal); L60.0 Ingrowing nail
CPT/HCPCS: 11755; 99204

== ENCOUNTER 2025-05-21 14:58 | Outpatient (REF) | payer OTHER, SELFPAY | END 2025-05-21 14:59 | disposition home or self-care (01) | LOC: HO.LNP 14:58 | PROVIDERS: PCP Internal Medicine; Visit Provider Student in an Organized Health Care Education/Training Program | DX: L60.0 Ingrowing nail (principal); B35.1 Tinea unguium; Z79.899 Other long term (current) drug therapy | CPT/HCPCS: 87070; 87101; 87205; 87220; 88304; 88312 ==

== ENCOUNTER 2025-08-02 08:06 | Outpatient (REF) | payer OTHER, SELFPAY ==
[2025-08-02 10:57] LABS: Alanine Aminotransferase 25 U/L (0-31); Albumin Level 4.5 g/dL (3.5-5.0); Alkaline Phosphatase 91 U/L (39-117); Anion Gap 11 (12-20); Aspartate Amino Transferase 21 U/L (5-31); Blood Urea Nitrogen 12 mg/dL (9-16); Calcium 9.5 mg/dL (8.4-10.2); Carbon Dioxide 28 mmol/L (22-29); Chloride 104 mmol/L (96-108); Cholesterol 206 mg/dL (<200); Estimated Glomerular Filt Rate > 60; HDL Cholesterol 44 mg/dL (>40); Potassium 4.3 mmol/L (3.3-5.1); Sodium 139 mmol/L (135-145); Total Protein 7.7 g/dL (6.5-8.0); Triglycerides 121 mg/dL (<150)
== END 2025-08-02 08:07 | disposition home or self-care (01) ==
LOC: HO.HMGCLDS 08:06
PROVIDERS: PCP Internal Medicine; Visit Provider Internal Medicine
DX: I10 Essential (primary) hypertension (principal); E78.5 Hyperlipidemia, unspecified; E66.01 Morbid (severe) obesity due to excess calories; E55.9 Vitamin D deficiency, unspecified; B35.1 Tinea unguium; Z79.899 Other long term (current) drug therapy
CPT/HCPCS: 36415; 80048; 80061; 80076; 82306

== ENCOUNTER 2025-08-27 08:25 | Outpatient (AMB) | payer OTHER, SELFPAY ==
--- NOTE | 2025-08-27 08:33 | A.OFFVIS_ITS ---
Vital Signs 3 08/27/25 08:38 Height 5 ft 2 in Weight 285 lb BMI 52.1 Intake Visit Reasons: 3 month f/u Intake Note: Humaira is a 35 year old female who presents today for a follow up on her Tinea unguium. At her last visit she was prescribed terbinafine which was then changed to intraconcazole and a nail biopsy was performed and specimens where sent out for pathology and microbiology. Patient reports she has been taking the medication and hasn't seen much of a change. She states she has concerns in regards to her bilateral ingrowns of the hallux Allergies sulfamethoxazole (From Bactrim) Allergy (Mild, Verified 08/27/25 08:38) rash cefaclor (From Ceclor) Allergy (Unknown, Verified 08/27/25 08:38) UNKNOWN Penicillins Allergy (Unknown, Verified 08/27/25 08:38) Unknown fish Allergy (Intermediate, Uncoded 11/30/24 09:16) Hives Food allergy Allergy (Intermediate, Uncoded 11/30/24 09:16) Hives HPI HPI 3 month f/u: Details: 35-year-old female no pertinent past medical history presents to the clinic for three-month f/u evaluation of discolored right great toenail. She took terbinafine for approximately 1 month, then was switched over to itraconazole for 2 months. She received her liver function tests last month and is here for review. She is also here to discuss possible partial nail avulsions for ingrown nails. History: She states that she has been doing with ingrown toenails for the majority of her adult life and she goes to a nail salon that treats her nails. However she has noticed recurrent discoloration and fungal nail infections which she has been treating with topical otsc-ofs-diytsun medications, which have had little efficacy. She uses antifungal sprays for her shoes and attempts to remove fungal contaminant at home. [facility] Medical History Food allergic skin reaction Fish allergy Acquired deformity of toenail IUD surveillance Dyslipidemia Exercise induced bronchospasm Mixed anxiety and depressive disorder Essential hypertension Elevated TSH Vitamin D deficiency Vitamin B12 deficiency Morbid obesity Hypertension Surgical History History of Family History (Reviewed 11/30/24 @ 09:16 by Colleen Concepcion [facility]) Mother Hypertension Brain aneurysm Skin cancer Thyroid disorder B-cell lymphoma Father Heart attack Bipolar 1 disorder Sister Mental health disorder Bipolar 1 disorder Sister No problems noted. Brother No problems noted. Brother No problems noted. Son No problems noted. Maternal Grandfather CAD (coronary artery disease) Acute [place], Onset Age: 60 Maternal Grandmother Alzheimer disease Social History Housing: House Alcohol intake: current Alcohol intake frequency: holidays/special occasions only Patient Tobacco Use Status: Never used Tobacco e-Cigarette/Vaping Use: Never Used Substance Use Type: Marijuana service: No Current occupational status: employed Cognitive needs: No Hearing needs: No Vision needs: No Female Reproductive History Menstrual Age of Menarche: 10 Review of Systems Const All systems reviewed & are unremarkable except as noted in HPI and below Physical Exam Vital Signs: BMI result Body Mass Index 52.1 Extrem Other: *Bilateral Lower Extremity Focused Exam Vascular: DP/PT 2/4, CFT<3s to digits, TG warm to cool, no edema to bilateral hallux Derm: no erythema, drainage, or clinical signs of infection. My right hallux lateral nail border ingrown, no clinical signs of infection. Left hallux medial and lateral nail borders mildly ingrown, no clinical signs of infection. Right hallux distal end with green-discoloration Right 5th toe nail dystrophic/discolored thickening Neuro: Protective sensation grossly intact to bilateral lower extremities. MSK: Mild tenderness on palpation of the distal medial and lateral nail borders of the left hallux and the right hallux lateral border. Results Reviewed Results Reviewed: Fungus Cult Hair/Skin/Nail Final 07/03/25-1443 Organism 1 Krista parapsilosis Quantity Isolated Right hallux nail pathology 05/21/2025: Diagnosis Nail, right hallux, excision: Onychomycosis Laboratory Tests 08/02/25 08:11 AST 21 ALT 25 Assessment & Plan Assessment & Plan (1) Onychomycosis: Comment: Right great toe nail Code(s): B35.1 - Tinea unguium Category: Medical Plan: * Reviewed nail biopsy with the patient. There seems to be improvement, however discoloration still present. * She was recommended completing her oral antifungal course, which she is still taking for more month. * Rx LFTs, to be completed in 1 month after completing her antifungal course. * Discussed that she would not see immediate results of her nail discoloration, and that it will likely take 6+ months to see clinical improvement of her nail. * Follow-up in 2 months (2) Ingrown toenail of both feet: Code(s): L60.0 - Ingrowing nail Category: Medical Plan: * Patient was recommended partial nail avulsion with chemical matrixectomy to her bilateral hallux medial and lateral nail borders to prevent recurrence of her paronychia. Discussed postprocedure protocol which will include limited activity after her partial nail avulsion. * We will plan for partial nail avulsion with phenol chemical matrixectomy next visit for the Right big toe. She will like to wait until after winter. * F/u in 2 months Coding Level of Care Code Est Pt Level 3 (57734) Diagnoses Onychomycosis B35.1 Ingrown toenail of both feet L60.0 Time Spent (min) 20
[2025-08-27 08:38] VITALS: BMI 52.1
== END 2025-08-27 08:49 | disposition home or self-care (01) ==
LOC: HO.HPODS 08:26
PROVIDERS: PCP Internal Medicine; Visit Provider Student in an Organized Health Care Education/Training Program
DX: B35.1 Tinea unguium (principal); L60.0 Ingrowing nail
CPT/HCPCS: 99213

== ENCOUNTER → 2025-08-27 08:25 | Outpatient (BNVA) | payer OTHER, SELFPAY | PROVIDERS: PCP Internal Medicine; Visit Provider Student in an Organized Health Care Education/Training Program | DX: B35.1 Tinea unguium (principal); L60.0 Ingrowing nail | CPT/HCPCS: 99212 ==